=== PATIENT | female | born 1965 | race African-American/Black ===

== ENCOUNTER 2024-03-17 16:18 | Inpatient (IN) | payer OTHER ==
[2024-03-17 16:56] VITALS: BMI 23.8
[2024-03-17] MEDS ORDERED: BISMUTH SUBSALICYLATE 524 MG/30 ML PO PRN (18:05)
[2024-03-17] MEDS ORDERED: MAGNESIUM HYDROX 2400MG/30ML ORAL SUSPENSION 30 ML CUP PO PRN (18:05)
[2024-03-17] MEDS ORDERED: ONDANSETRON *ODT* 4 MG TABLET SL PRN (18:05)
[2024-03-17] MEDS ORDERED: guaiFENesin 600 MG TABLET.ER (FP) PO PRN (18:05)
[2024-03-17] MEDS ORDERED: BENZOCAINE/MENTHOL (CHLORASEPTIC ) LOZENGE MM PRN (18:05)
[2024-03-17] MEDS ORDERED: LOPERAMIDE HCL 2 MG CAPSULE PO PRN (18:05)
[2024-03-17] MEDS ORDERED: ACETAMINOPHEN 325 MG TABLET (FP) PO PRN (18:05)
[2024-03-17] MEDS ORDERED: MAG HYDROX/AL HYDROX/SIMETH 30 ML UNIT-DOSE CUP PO PRN (18:05)
[2024-03-17] MEDS ORDERED: METHOCARBAMOL 500 MG TABLET PO PRN (18:05)
[2024-03-17] MEDS ORDERED: DICYCLOMINE HCL 10 MG CAPSULE PO PRN (18:05)
[2024-03-17] MEDS ORDERED: IBUPROFEN 400 MG TABLET (FP) PO PRN (18:05)
[2024-03-17] MEDS ORDERED: BENZONATATE 200 MG CAPSULE PO PRN (18:05)
[2024-03-17] MEDS ORDERED: POLYETHYLENE GLYCOL (HEALTHYLAX) 3350 17 GM PACKET PO PRN (18:05)
[2024-03-17] MEDS: THIAMINE 100 MG TABLET PO SCH (22:39)
[2024-03-17] MEDS: MELATONIN 5 MG TABLETS PO SCH (22:39)
[2024-03-17] MEDS: diazePAM 5 MG TABLET PO SCH (23:26)
[2024-03-18] MEDS: amLODIPine BESYLATE 10 MG TABLET (FP) PO SCH (10:53)
[2024-03-18] MEDS: PRENATAL VITAMINS W/ FOLIC ACID TABLET (FP) PO SCH (10:53)
[2024-03-18] MEDS: LOSARTAN POTASSIUM 50 MG TABLET PO SCH (10:53)
[2024-03-18 12:49] LABS: HEMATOCRIT 34.2 % (32.4-45.2); HEMOGLOBIN 11.5 GM/dL (10.7-15.3); MCH 33.3 pg (25.7-33.7); MCHC 33.6 g/dl (32.0-36.0); MEAN PLT VOLUME 8.8 fl (7.5-11.1); PLATELET COUNT 207 10^3/uL (134-434); RBC 3.46 M/mm3 (3.60-5.2); RDW 14.3 % (11.6-15.6); WHITE BLOOD COUNT 2.6 K/mm3 (4.0-10.0)
[2024-03-18 12:58] LABS: CHLORIDE 106 mmol/L (98-107); POTASSIUM 3.2 mmol/L (3.5-5.1); SODIUM 143 mmol/L (136-145)
[2024-03-18 13:01] LABS: CALCIUM 9.6 mg/dL (8.5-10.1)
[2024-03-18 13:02] LABS: ALBUMIN 3.8 g/dl (3.4-5.0); BLOOD UREA NITROGEN 11.6 mg/dL (7-18); GLUCOSE,RANDOM 108 mg/dL (74-106)
[2024-03-18 13:05] LABS: ANION GAP 8 mmol/L (4-13); CO2 29 mmol/L (21-32); CREATININE 0.6 mg/dL (0.55-1.3); SGOT/AST 29 U/L (15-37); SGPT/ALT 36 U/L (13-61)
[2024-03-18 13:07] LABS: BILIRUBIN,TOTAL 0.9 mg/dL (0.2-1)
[2024-03-18 13:08] LABS: ALK PHOS 85 U/L (45-117)
[2024-03-18 13:09] LABS: TOT PROT 7.4 g/dl (6.4-8.2)
[2024-03-18] MEDS: MIRTAZAPINE 15 MG TABLET (FP) PO SCH (22:18)
[2024-03-18] MEDS: IBUPROFEN 600 MG TABLET (FP) PO PRN (22:18)
[2024-03-19] MEDS: diazePAM 5 MG TABLET PO SCH (05:41)
[2024-03-19] MEDS: diazePAM 5 MG TABLET PO PRN (17:31)
[2024-03-20] MEDS: diazePAM 5 MG TABLET PO SCH (05:39)
[2024-03-20 16:58] VITALS: RESP 18
[2024-03-20] MEDS: hydrOXYzine PAMOATE 25 MG CAPSULE (FP) PO PRN (22:14)
[2024-03-21] MEDS: diazePAM 5 MG TABLET PO ONE (05:36)
[2024-03-21 09:13] VITALS: BP 142/91; PULSE 78; TEMP 98.3
== END 2024-03-21 10:48 | disposition home or self-care (01) | DRG 774 ==
LOC: YASAS 16:18 → Y3N 20:32
PROVIDERS: ADMIT Allergy & Immunology; ATTEND Surgery
PROC: HZ2ZZZZ Detoxification Services for Substance Abuse Treatment (ICD-10-PCS; principal; 2024-03-17)
DX: F10.230 Alcohol dependence with withdrawal, uncomplicated (principal); F14.20 Cocaine dependence, uncomplicated; F31.9 Bipolar disorder, unspecified; F41.9 Anxiety disorder, unspecified; G47.00 Insomnia, unspecified; I10 Essential (primary) hypertension
CPT/HCPCS: 36415; 80053; 80305; 80307; 85027; 86780; 93005; 93010